=== PATIENT | male | born 1990 | race Caucasian/White ===

== ENCOUNTER 2022-02-26 01:01 | Emergency (ER) | payer OTHER ==
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
[2022-02-26 01:28] VITALS: BP 141/65; PULSE 107; RESP 16; TEMP 98.1
== END 2022-02-26 01:51 | disposition other institution (70) ==
LOC: EC 01:01
DX: F10.129 Alcohol abuse with intoxication, unspecified (principal); Y09 Assault by unspecified means
CPT/HCPCS: 99284